=== PATIENT | female | born 1965 | race Two or more races ===

== ENCOUNTER 2018-03-11 09:54 | Emergency (ER) | payer OTHER ==
[~2018-03-11] VITALS: Ht 172.7 cm; Wt 87.5 kg
[2018-03-11] MEDS ORDERED: ALTACE2.5 MG (10:29)
[2018-03-11] MEDS ORDERED: FARXIGA5 MG (10:30)
[2018-03-11] MEDS ORDERED: LATANOPROST2.5 ML (10:31)
[2018-03-11] MEDS ORDERED: GLIMEPIRIDE4 MG (10:31)
[2018-03-11] MEDS ORDERED: COSOPT PF EYE1 EACH (10:31)
== END 2018-03-11 16:05 | disposition home or self-care (01) ==
LOC: ER 09:54
DX: R42 Dizziness and giddiness (principal)